=== PATIENT | female | born 1935 | race Caucasian/White ===

== ENCOUNTER 2016-12-12 07:15 | Day surgery (SDC) | payer MEDICARE, BC ==
--- NOTE | 2016-12-06 15:04 | History and Physical Report ---
I saw Ms. Oliva in the office on 12/05/16 in regards to a mass on the right side of her face. She states this has been present for years and is causing her some discomfort. She was seen in the [facility]ology [facility] and was sent over to me. PAST MEDICAL HISTORY: Significant for hypertension, diabetes, lung cancer, osteoporosis. PAST SURGICAL HISTORY: Hysterectomy. Bilateral knee replacement. Left lobectomy. MEDICATIONS: Currently takes; Centrum Lisinopril Metformin Aspirin ALLERGIES: SHE HAS ALLERGIES TO SULFA, VICODIN, AND MORPHINE. SOCIAL HISTORY: She denies any tobacco or alcohol usage. PHYSICAL EXAMINATION: GENERAL: Height is 4'11". Weight is 195. She is afebrile. VITAL SIGNS: Stable. HEART: Regular. LUNGS: Clear. ABDOMEN: Soft. FACE: There is a 2 cm mass on the right side of her face just anterior to her ear. This has a central puncta and is consistent with a sebaceous cyst. We did discuss excision versus observation and due to the discomfort and enlarging nature, we will plan on excision. The risk include; bleeding, infection, recurrence, and she understands this fully. This will be scheduled shortly. Renny Hollingsworth D.O. Date & Time cc: Dr. Teresa Scott JOB NUMBER: [id number] MTDD
[2016-12-12] MEDS ORDERED: BUPIVACAINE 0.25% W/EPI MPF 30ML VIAL IVP ONE (09:45)
[2016-12-12] MEDS ORDERED: LIDOCAINE 2% MDV (20MG/ML) 20ML VIAL IV ONE (15:34)
[2016-12-12] MEDS ORDERED: PROPOFOL 10 MG/ML VIAL IV ONE (15:34)
[2016-12-12] MEDS ORDERED: FENTANYL PF 100MCG/2ML VIAL IV ONE (15:34)
[2016-12-12] MEDS ORDERED: MIDAZOLAM HCL 2MG/2ML VIAL IV ONE (15:34)
--- NOTE | 2016-12-15 13:07 | Operative Note ---
DATE OF SURGERY: 12/12/2016 REFERRING: Pradeep Yusuf D.O. PREOPERATIVE DIAGNOSIS: Facial mass. POSTOPERATIVE DIAGNOSIS: Facial mass. OPERATION: Wide excision of facial mass, right cheek. Surgeon: Renny Hollingsworth D.O. Indication: The patient is an 81-year-old female who presented to the clinic with what appeared to be a large sebaceous cyst on her right cheek. We did discuss excision, risks, benefits and alternatives. Risks include bleeding, infection, unfavorable cosmetic outcome, injury to facial nerve and she understood this fully. Consent was signed and questions were answered. PROCEDURE: She was taken to the Operating Room and placed in the supine position and local IV sedation was given per Department of Anesthesia. The patient's face was prepped and draped in the usual sterile fashion. The area around the mass was anesthetized with a total of 5 mL of 0.25% Sensorcaine with epinephrine. A localized field block was also done. At this time an elliptical incision was made around the mass incorporating the puncta. This was carried down to subcutaneous tissue where a large sebaceous cyst was encountered. This was dissected free from the surrounding tissue with sharp dissection. The wound was then closed with 3-0 Vicryl and 4-0 Monocryl. She tolerated the procedure well. Total size was 3 x 2 cm into the subcu. Renny Hollingsworth DO CC: Pradeep Yusuf D.O. [facility]
== END 2016-12-12 09:40 | disposition home or self-care (01) ==
LOC: SUR 07:15
PROVIDERS: ATTEND Surgery
DX: L72.0 Epidermal cyst (principal); E11.9 Type 2 diabetes mellitus without complications; Z79.84 Long term (current) use of oral hypoglycemic drugs; I10 Essential (primary) hypertension; M81.0 Age-related osteoporosis without current pathological fracture; L91.8 Other hypertrophic disorders of the skin

== ENCOUNTER 2018-04-07 08:34 | Emergency (ER) | payer MEDICARE, BC ==
[2018-04-07] MEDS ORDERED: SODIUM CHLORIDE 0.9% 500 ML IV ONE (08:53)
--- NOTE | 2018-04-07 09:01 | Emergency Department Record ---
History of Present Illness - General Chief complaint: Extremity Problem Stated complaint: LEG Time Seen by Provider: 04/07/18 08:48 Source: Patient Mode of Arrival: EMS Limitations: No limitations - History of Present Illness Initial comments: The patient is here due to having pain to her lower legs due to multiple bites to the legs. She states her dog has fleas and she has ants in her house along with mosquitos and now has bites to both legs. The pain is mild. She denies any confusion, fever, chills, AP, vomiting, diarrhea, CP or SOB. The patient also has a hx of frequent UTI's and feels she may have another one. MD Complaint: Extremity pain Onset/Timin -: Days(s) History of Same: Yes Radiation: None Severity scale (1-10): 3 Quality: Aching - Related Data Previous Rx's Medication Instructions Recorded Ciprofloxacin HCl [Cipro] 1 tab PO Q12H #14 tab 04/07/18 Triamcinolone Acetonide [Triderm] 28.4 gm TP DAILY #1 cream..g. 04/07/18 Allergies Allergy/AdvReac Type Severity Reaction Status Date / Time hydrocodone bitartrate Allergy HYPERSENSIT Verified 04/07/18 08:47 [From Vicodin] IVITY morphine Allergy HYPERSENSIT Verified 04/07/18 08:47 IVITY Sulfa (Sulfonamide Allergy HIVES Verified 04/07/18 08:47 Antibiotics) Travel Screening - Travel/Exposure Within Last 30 Days Have you traveled within the last 30 days?: No - Travel/Exposure Within Last Year Have you traveled outside the [place] in the last year?: No - Additonal Travel Details Have you been exposed to anyone with a communicable illness?: No - Travel Symptoms Symptom Screening: None Review of Systems Constitutional: Denies: Chills, Fever, Other Eyes: Denies: Eye discharge ENT: Denies: Congestion Respiratory: Denies: Cough, Dyspnea Cardiovascular: Denies: Arrhythmia, Chest pain Endocrine: Denies: Fatigue Gastrointestinal: Denies: Abdominal pain, Nausea Genitourinary: Denies: Dysuria Musculoskeletal: Denies: Arthralgia Past Medical History - SOCIAL HISTORY Smoking Status: Current every day smoker Alcohol Use: None Drug Use: None - RESPIRATORY Hx Respiratory Disorders: Yes Hx Bronchitis: Yes Comment:: lung cancer WITH BOB REMOVED 2003 - CARDIOVASCULAR Hx Cardio Disorders: Yes Hx Hypertension: Yes (on meds good control) - NEURO Hx Neuro Disorders: Yes Hx Dizziness: Yes (infrequent) Hx Weakness: Yes (knees) - GI Hx GI Disorders: Yes Hx Reflux: Yes (occass diet related) Hx of Polyps: Yes Comment:: intestinal polyps - Hx Genitourinary Disorders: Yes Hx Bladder Problem: Yes (freq urination) Hx UTI: Yes (hx of caused confusion 9-16) - ENDOCRINE Hx Endocrine Disorders: Yes Hx Diabetes: Yes - MUSCULOSKELETAL Hx Musculoskeletal Disorders: Yes Hx Arthritis: Yes Hx Osteoporosis: Yes - PSYCH Hx Psych Problems: No - HEMATOLOGY/ONCOLOGY Hx Hematology/Oncology Disorders: Yes Hx Anemia: Yes Hx Cancer: Yes (lung,cervical, skin) Hx Chemotherapy: (1993) Hx Radiation Therapy: (1993) Family Medical History Any Significant Family History?: Yes Hx Cancer: Mother Physical Exam - General General Appearance: Alert, Oriented x3, Cooperative, No acute distress - Head Head exam: Atraumatic, Normocephalic, Normal inspection - Eye Eye exam: Normal appearance, PERRL - ENT Throat exam: Normal inspection. negative: Tonsillar erythema, Tonsillar exudate - Neck Neck exam: Normal inspection, Full ROM. negative: Tenderness - Respiratory Respiratory exam: Normal lung sounds bilaterally. negative: Respiratory distress - Cardiovascular Cardiovascular Exam: Regular rate, Normal rhythm, Normal heart sounds - GI/Abdominal GI/Abdominal exam: Soft, Normal bowel sounds. negative: Tenderness - Extremities Extremities exam: negative: Normal inspection (There are multiple insect bites to both lower legs bilaterally. There is no surrounding erythema, warmth or tenderness.) - Back Back exam: Reports: Normal inspection, Full ROM. Denies: Muscle spasm, Rash noted, Tenderness - Neurological Neurological exam: Alert, Normal gait, Oriented X3 (The patient is oriented to name, age, Bday, place, year, and family doctor.), Other. negative: Abnormal gait, Motor sensory deficit - Skin Skin exam: Rash. negative: Petechiae Course Vital Signs 04/07/18 08:39 Temperature 98.1 F Pulse Rate 74 Respiratory 18 Rate Blood Pressure 153/77 Pulse Ox 97 - Reevaluation(s) Reevaluation #1: The patient is doing well at this time. She denies any pain or discomfort but is having some itching to her lower legs at the sites of the bites. I did discuss the UTI with her and the need for an oral Abx and to see her PCP for recheck neck week. 04/07/18 09:56 Reevaluation #2: The patient is doing very well at this time. She is ambulating normally with no confusion or ataxia. 04/07/18 10:02 Medical Decision Making - Data Complexity MDM Data: Labs Ordered and/or Reviewed - Lab Data Result diagrams: 04/07/18 08:15 04/07/18 08:15 Disposition Disposition: Discharge Clinical Impression: UTI (urinary tract infection) Qualifiers: Urinary tract infection type: acute cystitis Hematuria presence: without hematuria Qualified Code(s): N30.00 - Acute cystitis without hematuria Disposition: Home, Self-Care Condition: (2) Stable Instructions: Urinary Tract Infection in Women (ED) Additional Instructions: Please take the Cipro as directed and stay out of the sun. Use the Triamcinolone cream to the leg bite wounds daily. Please see your family doctor for recheck of the bites and urine next week. Return to the ER for any worsening symptoms. Prescriptions: Ciprofloxacin HCl [Cipro] 1 tab PO Q12H #14 tab Triamcinolone Acetonide [Triderm] 28.4 gm TP DAILY #1 cream..g. Referrals: [facility] Special[facility] [Provider Group] Renny Hollingsworth [DOCTOR OF OSTEOPATH] - DEISY NAYAK [] - Forms: Patient Portal Access Time of Disposition: 09:59 Quality - Quality Measures Quality Measures: N/A - Blood Pressure Screening View Details: Yes Does Patient Have Any of the Following: No Blood Pressure Classification: Hypertensive Reading Systolic Measurement: 153 Diastolic Measurement: 77 Screening for High Blood Pressure: < First Hypertensive BP, F/U Documented > [ [id number]] First Hypertensive Follow-up Interventions: Referral to alternative/primary care provider.
[2018-04-07 09:18] LABS: BASO % 0.4 % (0-6); GRAN % 56.3 % (47-80); HEMATOCRIT 40.4 % (35.0-47.0); HEMOGLOBIN 12.9 gm/dl (11.6-16.0); LYMPH % 30.5 % (16-45); MEAN CELL VOLUME 87.6 fl (81-97); MEAN CORPUSCULAR HGB CONC 31.9 g/dl (32-36); MEAN PLATELET VOLUME 10.7 fl (7.4-10.4); MONO % 8.8 % (0-9); PLATELET COUNT 231 K/uL (130-400); RED BLOOD COUNT 4.61 M/uL (3.80-5.40); RED CELL DISTRIBUTION WIDTH 13.5 % (11.5-14.5); URINE APPEARANCE CLEAR; URINE BILIRUBIN NEGATIVE (NEGATIVE); URINE BLOOD SMALL (NEGATIVE); URINE COLOR YELLOW; URINE GLUCOSE (UA) NEGATIVE (NEGATIVE); URINE KETONE NEGATIVE (NEGATIVE); URINE LEUKOCYTE ESTERASE SMALL (NEGATIVE); URINE NITRITE NEGATIVE (NEGATIVE); URINE PROTEIN NEGATIVE (NEGATIVE); URINE UROBILINOGEN 0.2 E.U./dL (0.20 - 1.00); WHITE BLOOD COUNT W/O DIFF 4.5 K/uL (4.2-12.2)
[2018-04-07 09:31] LABS: URINE BACTERIA 3+; URINE EPITHELIAL CELLS 0 - 2 (FEW); URINE RBC 0 - 2 (NONE SEEN); URINE WBC 16 - 20 (0-2/hpf)
[2018-04-07 09:35] LABS: BLOOD UREA NITROGEN 12 mg/dL (8-23); CREATININE 0.9 mg/dL (0.5-0.9); EST GLOMERULAR FILTRATION RATE > 60 mL/min
[2018-04-07 09:36] LABS: TOTAL PROTEIN 7.6 g/dL (6.6-8.7)
[2018-04-07 09:38] LABS: GLUCOSE,RANDOM 176 mg/dL (74-109)
[2018-04-07 09:40] LABS: ALT/SGPT 11 U/L (<33); AST/SGOT 17 U/L (10.0-35.0)
[2018-04-07 09:41] LABS: ALBUMIN 4.3 g/dL (4.0-5.0); ALKALINE PHOSPHATASE 72 U/L (35-104)
[2018-04-07] MEDS ORDERED: CIPROFLOXACIN HCL 500 MG TABLET PO ONE (09:42)
[2018-04-07 09:44] LABS: BILIRUBIN,DIRECT < 0.2 mg/dL (0-0.3)
== END 2018-04-07 10:32 | disposition home or self-care (01) ==
LOC: ER 08:34
DX: S80.862A Insect bite (nonvenomous), left lower leg, initial encounter (principal); S80.861A Insect bite (nonvenomous), right lower leg, initial encounter; N30.00 Acute cystitis without hematuria; I10 Essential (primary) hypertension; F17.210 Nicotine dependence, cigarettes, uncomplicated; W57.XXXA Bitten or stung by nonvenomous insect and other nonvenomous arthropods, initial encounter
CPT/HCPCS: 80048; 80076; 81001; 85025; 86140; 99284

== ENCOUNTER 2018-04-30 09:07 | Day surgery (SDC) | payer MEDICARE, BC ==
[~2018-04-30 09:07] MED LIST: ACETAMINOPHEN 1,000 MG/100 ML BTL IV ONE
[2018-04-30] MEDS ORDERED: SILVER SULFADIAZINE 25 GM CREAM TOP ONE (09:08)
[2018-04-30] MEDS ORDERED: FENTANYL PF 100MCG/2ML VIAL IV ONE (09:08)
[2018-04-30] MEDS ORDERED: MIDAZOLAM HCL 2MG/2ML VIAL IV ONE (09:08)
[2018-04-30] MEDS ORDERED: BUPIVACAINE 0.25% W/EPI MPF 30ML VIAL IVP ONE (09:08)
[2018-04-30] MEDS ORDERED: SEVOFLURANE 250 ML INH ONE (09:08)
[2018-04-30] MEDS ORDERED: LIDOCAINE 1% MDV (10MG/ML) 20ML VIAL SQ ONE (09:08)
[2018-04-30] MEDS ORDERED: PROPOFOL 10 MG/ML VIAL IV ONE (09:08)
--- NOTE | 2018-05-01 12:21 | Operative Note ---
DATE OF SURGERY: 04/30/2018 Surgeon: Renny Hollingsworth DO PREOPERATIVE DIAGNOSIS: Perianal condyloma. POSTOPERATIVE DIAGNOSIS: Perianal condyloma. OPERATION: Wide excision of perianal condyloma and excision of left thigh mass. 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 She has had topical treatments but she has failed these. We did discuss wide excision, risks, benefits, and alternatives. Risks include bleeding, infection, underlying squamous cell malignancy, need for delayed or repeat operation. She understood this fully. Thereafter, consent was signed and questions answered. PROCEDURE: The patient was taken to the operating room and placed in a supine position. General anesthesia was administered per the department of anesthesia. The patient was rotated into the lithotomy position. Her perianal region was prepped and draped in the usual sterile fashion. The area around the condyloma which was mainly off to her right inferior side was anesthetized with a total of 10 mL of 0.25% Sensorcaine with epinephrine. A wide excision was done into subcutaneous tissue. We did take part of the gluteal muscle due to the deep nature. This measured 5 x 5 cm into the muscle. There was a left thigh mass which was excised in a similar fashion although this was 2 x 2 cm into the subcu. The condyloma did not invade or interfere with the sphincter complex. Rectal exam was done which showed no internal masses. At this time, final pathology pending. Silvadene ointment was placed on each wound and she will be seen back in about 2 weeks. CC: MD JUDSON Curry
== END 2018-04-30 13:55 | disposition home or self-care (01) ==
LOC: SUR 09:07
PROVIDERS: ATTEND Surgery
DX: D01.2 Carcinoma in situ of rectum (principal); D04.72 Carcinoma in situ of skin of left lower limb, including hip; E11.9 Type 2 diabetes mellitus without complications; I10 Essential (primary) hypertension; F03.90 Unspecified dementia, unspecified severity, without behavioral disturbance, psychotic disturbance, mood disturbance, and anxiety

== ENCOUNTER 2018-05-28 07:26 | Day surgery (SDC) | payer MEDICARE, BC ==
[2018-05-28] MEDS ORDERED: PROPOFOL 10 MG/ML VIAL IV ONE (07:27)
[2018-05-28] MEDS ORDERED: FENTANYL PF 100MCG/2ML VIAL IV ONE (07:27)
[2018-05-28] MEDS ORDERED: ONDANSETRON HCL IV 4 MG/2 ML VIAL IVP ONE (07:27)
[2018-05-28] MEDS ORDERED: BUPIVACAINE 0.25% W/EPI MPF 30ML VIAL IVP ONE (07:27)
[2018-05-28] MEDS ORDERED: DESFLURANE 240 ML BTL INH ONE (07:27)
--- NOTE | 2018-05-29 12:33 | Operative Note ---
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 POSTOPERATIVE DIAGNOSIS: OPERATION: Indication: The patient is an 83-year-old female who underwent excision of a perianal mass about a month ago. She had known condylomatous area for quite a few years. The margin was positive. We did schedule for re-excision. Risks include but are not limited to bleeding, infection, fecal incontinence if sphincter complex was involved, need for delayed or repeat operation. She understood this fully. Thereafter, consent was signed and questions answered. PROCEDURE: The patient was taken to the operating room and placed in a supine position. General anesthesia was administered per the department of anesthesia. The patient was rotated in the lithotomy position. Her prior incision site was prepped and draped in the usual fashion. This was anesthetized with a total of 10 mL of 0.25% Sensorcaine with epinephrine. At this time, this was then re-excised using 5 mm margins. The specimen size measured about 5 x 5 cm and went down to the gluteal muscle laterally. This did not appear to invade or involve the sphincter complex medially. This was then passed off the field. It was tagged medially. Hemostasis was noted. Triple antibiotic ointment was then applied to the wound. She was taken to the recovery room in satisfactory condition. Final pathology pending. CC: MD JUDSON Curry
== END 2018-05-28 12:05 | disposition home or self-care (01) ==
LOC: SUR 07:26
PROVIDERS: ATTEND Surgery
DX: D04.5 Carcinoma in situ of skin of trunk (principal); I10 Essential (primary) hypertension; E11.9 Type 2 diabetes mellitus without complications; K21.9 Gastro-esophageal reflux disease without esophagitis
CPT/HCPCS: 11606; 00300; 93005; 88305; J2405; J3010

== ENCOUNTER 2018-06-18 09:07 | Emergency (ER) | payer MEDICARE, BC ==
--- NOTE | 2018-06-18 09:23 | Emergency Department Record ---
History of Present Illness - General Chief complaint: Lower Extremity Pain Stated complaint: LEG HARD AND SWOLLEN Time Seen by Provider: 06/18/18 09:17 Source: Patient, Family Mode of Arrival: Wheelchair Limitations: No limitations - History of Present Illness Initial comments: 83 yo female presents with a few weeks of increasing calf swelling and discomfort on the left side. She has a few scabs on the lower leg as well that have become red. No pus. No cough, chest pain or shortness of breath. She did recently have surgery for " a rectal issue" with Dr Hollingsworth. She states she saw him this morning and the healing was on track. He advised the leg be evaluated for the swelling. PCP is Dr Carnes. The daughter is with the patient. She also expresses a concern about the onset of possible dementia. Over the last year she has noted times of confusion, memory issues, and changes from her baseline. She has not been formally worked up for dementia. The patient lives independently. She is not confused at the time of this interview and no memory issues related the concern that brought her to the ED this morning. MD Complaint: Extremity swelling -: Week(s) Location: Left History of Same: Yes -: Yes Myalgia Radiation: Distal Quality: Aching Consistency: Constant Improves with: Nothing Worsens with: Nothing Associated Symptoms: Denies other symptoms - Related Data Previous Rx's Medication Instructions Recorded Cephalexin [Keflex] 500 mg PO QID #28 cap 06/18/18 Allergies Allergy/AdvReac Type Severity Reaction Status Date / Time hydrocodone bitartrate Allergy HYPERSENSIT Verified 06/18/18 09:20 [From Vicodin] IVITY morphine Allergy HYPERSENSIT Verified 06/18/18 09:20 IVITY Sulfa (Sulfonamide Allergy HIVES Verified 06/18/18 09:20 Antibiotics) Review of Systems Constitutional: Denies: Chills, Fever, Malaise, Weakness Eyes: Denies: Eye discharge ENT: Denies: Congestion, Throat pain Respiratory: Denies: Cough, Dyspnea, Wheezes Cardiovascular: Reports: As per HPI, Edema. Denies: Chest pain, Palpitations, Syncope Endocrine: Denies: Fatigue Gastrointestinal: Denies: Abdominal pain, Diarrhea, Nausea, Vomiting Genitourinary: Denies: Dysuria, Urgency Musculoskeletal: Reports: Myalgia. Denies: Arthralgia, Back pain, Joint swelling, Neck pain Skin: Denies: Bruising, Change in color, Rash Neurological: Reports: Confusion (At times over many months. No acute changes. ). Denies: Headache, Numbness, Weakness Psychiatric: Denies: Anxiety Hematological/Lymphatic: Denies: Blood Clots, Easy bleeding, Easy bruising Past Medical History - SOCIAL HISTORY Smoking Status: Former smoker - RESPIRATORY Hx Respiratory Disorders: Yes Hx Bronchitis: Yes Hx Sleep Apnea: Yes (possibly not dx'd) Comment:: lung cancer WITH BOB REMOVED 2003 - CARDIOVASCULAR Hx Cardio Disorders: Yes Hx Hypertension: Yes (on meds fair control) - NEURO Hx Neuro Disorders: Yes Hx Dementia: Yes (logic problems) Hx Dizziness: Yes (infrequent) Hx Weakness: Yes (knees) - GI Hx GI Disorders: Yes Hx Reflux: Yes (occass diet related) Hx of Polyps: Yes Comment:: intestinal polyps - Hx Genitourinary Disorders: Yes Hx Bladder Problem: Yes (freq urination wears depends) Hx UTI: Yes (hx of recent) - ENDOCRINE Hx Endocrine Disorders: Yes Hx Diabetes: Yes (on metformin) Comment:: doesnt check blood sugars - MUSCULOSKELETAL Hx Musculoskeletal Disorders: Yes Hx Arthritis: Yes Hx Osteoporosis: Yes - PSYCH Hx Psych Problems: Yes Hx Behavior Problems: Yes (defensive) Hx Depression: Yes (quite severe pt wont seek help) - HEMATOLOGY/ONCOLOGY Hx Hematology/Oncology Disorders: Yes Hx Anemia: Yes Hx Cancer: Yes (lung,cervical, skin) Hx Chemotherapy: (denies) Hx Radiation Therapy: (denies) Family Medical History Hx Cancer: Mother Physical Exam - General General Appearance: Alert, Oriented x3, Cooperative, No acute distress Limitations: No limitations - Head Head exam: Normal inspection - Eye Eye exam: Normal appearance. negative: Conjunctival injection, Scleral icterus - ENT ENT exam: Normal exam, Mucous membranes moist Ear exam: Normal external inspection Nasal Exam: Normal inspection Mouth exam: Normal external inspection - Neck Neck exam: Normal inspection, Full ROM. negative: Tenderness - Respiratory Respiratory exam: Normal lung sounds bilaterally. negative: Respiratory distress, Rhonchi, Stridor, Wheezes - Cardiovascular Cardiovascular Exam: Regular rate, Normal rhythm, Normal heart sounds Peripheral Pulses: 2+: Radial (R), Radial (L), Dorsalis Pedis (L) - GI/Abdominal GI/Abdominal exam: Soft. negative: Distended, Guarding, Tenderness - Extremities Extremities exam: Calf tenderness, Full ROM, Pedal edema, Tenderness. negative : Normal inspection Image of Full Body: 1 - mild left calf swelling comparted to the right side, scattered scabs with erythema, no pus, no streaking redness. - Back Back exam: Reports: Full ROM - Neurological Neurological exam: Alert, Oriented X3 - Psychiatric Psychiatric exam: Normal affect, Normal mood - Skin Skin exam: Erythema Course - Reevaluation(s) Reevaluation #1: The EMR was reviewed. 05/28/18. surgery for perineal squamous cell cancer 06/18/18 09:22 The labs were reviewed No acute changes on the CBC The BMP demonstrated sodium mildly elevated at 147 otherwise normal 06/18/18 09:51 06/18/18 10:18 The venous doppler was reviewed. No DVT in the Left Lower Leg. 06/18/18 10:58 The UA was reviewed LE+WBC and Bacteria noted Antibiotic prescribed. We discussed the results of the tests and questions were answered at the time of discharge. The patient is doing well and is comfortable with DC. DC vitals were reviewed. We discussed at length reasons to immediately return to the ED as well as close follow up. The patient will call the PCP for close follow up of this ED visit to review this visit and the tests performed Medical Decision Making - Lab Data Result diagrams: 06/18/18 09:25 06/18/18 09:25 Disposition Disposition: Discharge (celllu) Clinical Impression: Urinary tract infection Cellulitis Qualifiers: Site of cellulitis: extremity Site of cellulitis of extremity: lower extremity Laterality: left Qualified Code(s): L03.116 - Cellulitis of left lower limb Disposition: Home, Self-Care Condition: (1) Good Instructions: Cellulitis (ED), Urinary Tract Infection in Women (ED) Additional Instructions: Take the prescriptions provided today as directed for the left leg Call Dr Deyvi sanchez. Call to schedule the next available appointment for a recheck. Return to ED if your symptoms worsen or if you have any new concerns. Review the final Emergency Record and test results with your doctor on follow up Follow up the symptoms of occasional confusion and memory issues with Dr Carnes at your next appointment as well. Prescriptions: Cephalexin [Keflex] 500 mg PO QID #28 cap Forms: Patient Portal Access Time of Disposition: 11:01 Quality - Quality Measures Quality Measures: N/A - Blood Pressure Screening Does Patient Have Any of the Following: Active Dx of HTN Blood Pressure Classification: Hypertensive Reading Systolic Measurement: 168 Diastolic Measurement: 95 Screening for High Blood Pressure: Patient Exclusion, Hx of HTN [G9744]
[2018-06-18 09:34] LABS: BASO % 0.4 % (0-6); EOS % 3.5 % (0-6); GRAN % 61.7 % (47-80); HEMATOCRIT 40.5 % (35.0-47.0); HEMOGLOBIN 12.6 gm/dl (11.6-16.0); LYMPH % 26.6 % (16-45); MEAN CELL VOLUME 87.7 fl (81-97); MEAN CORPUSCULAR HEMOGLOBIN 27.3 pg (27-33); MEAN CORPUSCULAR HGB CONC 31.1 g/dl (32-36); MEAN PLATELET VOLUME 9.6 fl (7.4-10.4); MONO % 7.8 % (0-9); PLATELET COUNT 235 K/uL (130-400); RED BLOOD COUNT 4.62 M/uL (3.80-5.40); RED CELL DISTRIBUTION WIDTH 13.9 % (11.5-14.5); WHITE BLOOD COUNT W/O DIFF 4.6 K/uL (4.2-12.2)
[2018-06-18 09:43] LABS: BLOOD UREA NITROGEN 14 mg/dL (8-23); CREATININE 0.9 mg/dL (0.5-0.9); EST GLOMERULAR FILTRATION RATE > 60 mL/min
[2018-06-18 09:45] LABS: PARTIAL THROMBOPLASTIN TIME 28.2 SECONDS (24.5-39.1); PROTHROMBIN TIME (PATIENT) 10.4 SECONDS (9.5-12.1)
[2018-06-18 09:46] LABS: GLUCOSE,RANDOM 146 mg/dL (74-109)
[2018-06-18] MEDS ORDERED: CLINDAMYCIN 150 MG CAP PO ONE (10:23)
[2018-06-18 10:42] LABS: URINE APPEARANCE CLEAR; URINE BILIRUBIN NEGATIVE (NEGATIVE); URINE BLOOD NEGATIVE (NEGATIVE); URINE COLOR YELLOW; URINE GLUCOSE (UA) NEGATIVE (NEGATIVE); URINE KETONE NEGATIVE (NEGATIVE); URINE LEUKOCYTE ESTERASE SMALL (NEGATIVE); URINE NITRITE NEGATIVE (NEGATIVE); URINE PROTEIN NEGATIVE (NEGATIVE); URINE UROBILINOGEN 0.2 E.U./dL (0.20 - 1.00)
[2018-06-18 10:52] LABS: URINE RBC NONE SEEN (NONE SEEN)
[2018-06-18 10:53] LABS: URINE BACTERIA 4+
--- NOTE | 2018-06-21 09:57 | US VENOUS DOPPLER REPORT ---
EXAM: EMERGENCY VENOUS DOPPLER ULTRASOUND OF THE LEFT LOWER EXTREMITY HISTORY: LEFT CALF PAIN AND SWELLING FOR A COUPLE WEEKS. TECHNIQUE: Emergency venous Doppler ultrasound of the left lower extremity was performed with color flow and spectral analysis Doppler utilized. Venous anatomy was evaluated from the level of the left external iliac vein down through the calf. Compression and flow augmentation maneuvers were utilized in the thigh and popliteal region as well. FINDINGS: No definite DVT identified in the left lower extremity. Flow was seen throughout with color flow and spectral analysis Doppler although color flow in the distal superficial femoral vein was not ideally seen probably just due to its relatively deep location. There was compression and flow augmentation in the distal aspect of the superficial femoral vein as well as elsewhere in the thigh and popliteal region and flow was also seen in the anterior and posterior tibial veins and peroneal vein of the calf with no DVT identified. IMPRESSION: EMERGENCY VENOUS DOPPLER ULTRASOUND OF THE LEFT LOWER EXTREMITY APPEARS ESSENTIALLY NEGATIVE WITH NO DEFINITE DVT IDENTIFIED DESCRIBED ABOVE. JOB NUMBER: [id number] MTDD
== END 2018-06-18 11:17 | disposition home or self-care (01) ==
LOC: ER 09:07
DX: L03.116 Cellulitis of left lower limb (principal); N39.0 Urinary tract infection, site not specified; I10 Essential (primary) hypertension; Z87.891 Personal history of nicotine dependence
CPT/HCPCS: 80048; 81001; 85025; 85610; 85730; 99283

== ENCOUNTER 2019-04-13 08:47 | Inpatient (IN) | payer MEDICARE, BC ==
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
[2019-04-13] MEDS ORDERED: CLINDAMYCIN 600MG/50ML PREMIX 600 MG/50 ML BAG IVPB ONE (09:23)
[2019-04-13 09:47] LABS: ABSOLUTE NEUTROPHIL COUNT 2.92; BASO % 0.6 % (0-6); EOS % 3.4 % (0-6); GRAN % 59.2 % (47-80); HEMATOCRIT 40.6 % (35.0-47.0); HEMOGLOBIN 13.1 gm/dl (11.6-16.0); LYMPH % 27.3 % (16-45); MEAN CELL VOLUME 87.7 fl (81-97); MEAN CORPUSCULAR HEMOGLOBIN 28.3 pg (27-33); MEAN CORPUSCULAR HGB CONC 32.3 g/dl (32-36); MEAN PLATELET VOLUME 10.7 fl (7.4-10.4); MONO % 9.5 % (0-9); PLATELET COUNT 201 K/uL (130-400); RED BLOOD COUNT 4.63 M/uL (3.80-5.40); RED CELL DISTRIBUTION WIDTH 13.6 % (11.5-14.5); WHITE BLOOD COUNT W/O DIFF 4.9 K/uL (4.2-12.2)
[2019-04-13 10:08] LABS: BLOOD UREA NITROGEN 12 mg/dL (8-23); CREATININE 0.9 mg/dL (0.5-0.9); EST GLOMERULAR FILTRATION RATE > 60 mL/min
[2019-04-13 10:11] LABS: GLUCOSE,RANDOM 153 mg/dL (74-109)
[2019-04-13] MEDS ORDERED: ACETAMINOPHEN 325 MG TAB PO PRN (11:59)
[2019-04-13] MEDS ORDERED: DOXYCYCLINE HYCLATE 100 MG CAPSULE PO ONE (12:07)
[2019-04-13] MEDS ORDERED: CLINDAMYCIN IVPB SCH ×2 (12:15→13:45)
[2019-04-13] MEDS ORDERED: SODIUM CHLORIDE 0.9% IVPB SCH ×2 (12:15→13:45)
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
[2019-04-13] MEDS: LISINOPRIL 10 MG TABLET PO SCH (13:32)
[2019-04-13] MEDS: DONEPEZIL HCL 5 MG TABLET PO SCH (13:32)
[2019-04-13] MEDS: ENOXAPARIN 40 MG/0.4 ML SYR SQ SCH (13:34)
[2019-04-13] MEDS ORDERED: ZINC OXIDE 28.35 GM TUBE TOP ONE (15:47)
[2019-04-13] MEDS: METFORMIN 500 MG TABLET PO SCH (16:23)
[2019-04-13] MEDS ORDERED: NYSTATIN 15 GM POWDER TP PRN (20:03)
[2019-04-13] MEDS: CLINDAMYCIN IVPB SCH (20:53)
[2019-04-13] MEDS: SODIUM CHLORIDE 0.9% IVPB SCH (20:53)
[2019-04-13] MEDS: DOXYCYCLINE HYCLATE 100 MG CAPSULE PO SCH (21:00)
[2019-04-14] MEDS: SODIUM CHLORIDE 0.9% IVPB SCH ×2 (04:02→13:53)
[2019-04-14] MEDS: CLINDAMYCIN IVPB SCH ×2 (04:02→13:53)
[2019-04-14] MEDS: METFORMIN 500 MG TABLET PO SCH (08:09)
[2019-04-14] MEDS: ENOXAPARIN 40 MG/0.4 ML SYR SQ SCH (09:21)
[2019-04-14] MEDS: DOXYCYCLINE HYCLATE 100 MG CAPSULE PO SCH ×2 (09:21→14:21)
[2019-04-14] MEDS ORDERED: VITAMIN D3 PO SCH (10:00)
[2019-04-14] MEDS ORDERED: CALCIUM CITRATE PO SCH (10:00)
[2019-04-14] MEDS ORDERED: ENOXAPARIN 30 MG/0.3 ML SYR SQ SCH (10:00)
--- NOTE | 2019-04-14 13:27 | Discharge Note ---
VTE H&P Assessment - Risk for VTE Risk for VTE: Yes Risk Level: Moderate Risk Assessment Date: 04/13/19 Risk Assessment Time: 13:21 VTE Orders Placed or Will Be Placed: Yes Discharge Medications - Discharge Medications Prescriptions: Clindamycin HCl 300 mg PO TID #30 capsule Doxycycline Hyclate [Vibramycin] 100 mg PO BID #20 capsule Home Medications: Ambulatory Orders C,E,Zinc,Copper 11/Dzqnw4g/Lut [Ocuvite Adult 50 Plus Softgel] 1 each PO DAILY 30 Days #30 cap 12/08/17 [Last Taken 06/17/18] Calcium Citrate/Vitamin D3 [Calcium Citrate - Vit D3 Tab] 1 each PO DAILY 90 Days #90 tab 12/08/17 [Last Taken 06/17/18] Clindamycin HCl 300 mg PO TID #30 capsule 04/14/19 [Last Taken Unknown] Doxycycline Hyclate [Vibramycin] 100 mg PO BID #20 capsule 04/14/19 [Last Taken Unknown] Nystatin [Nystop] 15 gm TP ASDIR PRN powder 04/14/19 [Last Taken Unknown] Discharge Note - Date Date of Discharge Note: 04/14/19 Disposition: Home, Self-Care Condition: (1) Good Instructions: Smoke Inhalation (ED) Additional Instructions: Follow up with Dr Carnes or one of his associates in one week elevate leg Forms: Patient Portal Access Activity at Discharge: Increase Activity as Tolerated
[2019-04-14] MEDS ORDERED: CLINDAMYCIN 150 MG CAP PO ONE (13:56)
[2019-04-14] MEDS: DONEPEZIL HCL 5 MG TABLET PO SCH (14:20)
[2019-04-14] MEDS: LISINOPRIL 10 MG TABLET PO SCH (14:20)
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
== END 2019-04-14 14:30 | disposition home or self-care (01) | DRG 206 ==
LOC: ER 08:47 → MEDSURG 11:10
PROVIDERS: ADMIT Emergency Medicine; ATTEND Emergency Medicine
DX: J70.5 Respiratory conditions due to smoke inhalation (principal); L03.116 Cellulitis of left lower limb; Y26.XXXA Exposure to smoke, fire and flames, undetermined intent, initial encounter; I10 Essential (primary) hypertension; E11.9 Type 2 diabetes mellitus without complications; F03.90 Unspecified dementia, unspecified severity, without behavioral disturbance, psychotic disturbance, mood disturbance, and anxiety; R35.0 Frequency of micturition; M19.90 Unspecified osteoarthritis, unspecified site; M81.0 Age-related osteoporosis without current pathological fracture; D64.9 Anemia, unspecified; Z87.891 Personal history of nicotine dependence; Z66 Do not resuscitate; Z85.118 Personal history of other malignant neoplasm of bronchus and lung; Z85.828 Personal history of other malignant neoplasm of skin; Z85.41 Personal history of malignant neoplasm of cervix uteri
CPT/HCPCS: 36416; 80048; 82375; 82948; 85025; 93005; 93010; 96365; 99223; 99239; 99285; J1650